=== PATIENT | male | born 1940 | race Caucasian/White ===

== ENCOUNTER 2019-12-22 18:19 | Emergency (ER) | payer OTHER ==
[~2019-12-22] VITALS: Ht 182.9 cm; Wt 77.1 kg
[~2019-12-22 18:19] MED LIST: ACETAMINOPHEN-1 EAC1 PO; ALBUTEROL; ALBUTEROL NEB INH; AMBIEN5 MG PO; AMLODIPINE BESY10 MG PO; AMLODIPINE BESYL5 MG PO; APAP500 PO; ATROVENT IH; BACLOFEN 10 MG10 MG PO; BACTRIM DS TAB1 EACH PO; BISACODYL SUPP10 MG RECTAL; CALCIPOTRIENE60 G1; CELEBREX 200 M200 M1 PO; CELEBREX 200 M200 MG PO; CELEXA 10 MG TA10 M1 PO; CELEXA 20 MG TA20 M1 PO; CLEOCIN HCL150 MG PO; CLONAZEPAM 0.50.5 M1 PO; CLONAZEPAM PO; COLACE 100 MG100 MG PO; CRESTOR20 MG PO; CYCLOBENZAPRINE10 MG PO; DIABETIC PILL PO; DICYCLOMINE HCL20 MG PO; DOVONEX TOP; DUONEB 2.5-0.5 M3 ML INH; ELIDEL100 GM TP; ENOXAPARIN40 MG/0.1 SUBQ; EPINEPHRINE0.1 MG/M1 IM; FEOSOL325 M1 PO; FERROUS SULFAT134 M1 PO; FLONASE 0.05%50 MCG NASAL; FLONASE 0.05%50 MCG NS; FLOVENT HFA 2220 MC1 INH; FOLIC ACID 1 MG1 MG PO; FORADIL 1212 MCG/KI1 INH; FUROSEMIDE 20 M20 M1 PO; FUROSEMIDE 20 M20 MG PO; FUROSEMIDE 40 M40 M1 PO; FUROSEMIDE 80 M80 MG PO; GLIPIZIDE ER2.5 MG PO; GLIPIZIDE ER5 MG PO; GLUCAGEN1 M2 IM; GLUCOPHAGE500 MG PO; GUIATUSS PO; HEMORRHOIDAL TOP; HUMULINR100 SQ; HYDROCODONE-AP1 EA10 PO; IBUPROFEN 800800 M1 PO; IPRATROPIUM; K-DUR 20 MEQ T20 MEQ PO; KEPPRA 100100 MG/M1 PO; KEPPRA250 MG PO; KLONOPIN0.5 MG PO; KLOR CON M; KLOR-CON 10 ER10 MEQ PO; LIDOCAINE VISC100 M1 SWISH&SPIT; LISINOPRIL40 MG PO; MAALOX PLUS X PO; METHOTREXATE 22.5 M1 PO; MIRALAX255 GM PO; MOM PO; MUCINEX600 MG PO; NEXIUM40 MG PO; NORCO 5-325 TA1 EACH PO; NOVOLOG100 UNIT/1 SUBQ; NYSTATIN 100,0015 G1 TOP; OMEPRAZOLE20 MG PO; PANTOPRAZOLE SO40 M1 PO; PHENERGAN PO; POTASSIUM CHLO10 ME1 PO; PREPARATION H O28 GM; PROAIR HFA8.5 GM INH; PROMETHAZINE12.5 M1 PO; PROTOPIC30 GM TP; PROVENTIL IH; PULMICORT FLEX90 MCG INH; QVAR HFA 880 MCG/UN1 INH; QVAR HFA 880 MCG/UN1 PO; SENNA CONCENTR8.6 MG PO; SENNA S TABLET1 EACH PO; SINGULAIR 10 MG10 M1 PO; SINGULAIR 10 MG10 MG PO; TAMSULOSIN HCL0.4 M1 PO; TOBRAMYCIN-DEXAM5 ML OPHTHALMIC; TOPAMAX 25 MG T25 M1 PO; TOPROL XL 100M100 MG PO; TRAMADOL 50 MG50 MG PO; TRAVATAN; TRICOR48 MG PO; TUMS PO; ULORIC40 MG PO; VENTOLIN HFA INH8 GM; VENTOLIN HFA INH8 GM IH; VENTOLIN HFA INH8 GM INH; XOLAIR; ZOCOR 20 MG TAB20 M1 PO; [UNRECOGNIZED DRUG - OTHER]; [UNRECOGNIZED DRUG - OTHER] PO
[2019-12-22 19:09] LABS: HEMATOCRIT 33.2 % (42.0-52.0); HEMOGLOBIN 10.3 gm/dL (14.0-18.0); MCH 26.4 pg (26.0-34.0); MCHC 31.1 g/dL (28.0-37.0); MCV 84.9 fL (80.0-100.0); PLATELET COUNT 274 thou/uL (150-400); RBC 3.92 mil/uL (4.50-6.00); RDW 15.6 % (10.5-14.5)
[2019-12-22 19:17] LABS: ANION GAP 7 mmol/L (7-16); BUN 14 mg/dL (7-18); CALCIUM 9.3 mg/dL (8.5-10.1); CHLORIDE 104 mmol/L (98-107); CO2 29 mmol/L (21-32); GLUCOSE 113 mg/dL (74-106); POTASSIUM 4.1 mmol/L (3.5-5.1); SODIUM 140 mmol/L (136-145)
[2019-12-22 19:27] LABS: ALBUMIN 2.7 g/dL (3.4-5.0); LIPASE 74 U/L (73-393); SGOT 12 U/L (15-37); SGPT 15 U/L (30-65); TOTAL BILIRUBIN 0.2 mg/dL (0.2-1.0); TOTAL PROTEIN 7.4 g/dL (6.4-8.2); TROPONIN-I <0.06 ng/mL (<0.06)
[2019-12-22 19:35] LABS: ABSOLUTE NEUTROPHILS 5.9 thou/uL (1.4-8.2)
[2019-12-22 21:25] VITALS: BP 162/72
--- NOTE | 2019-12-23 08:52 | EKG ---
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[id number] Requested By: Merlin Haley Order Number: [id number] MD: Ayo Calderon Measurements Intervals [place] Rate: 67 P: -1 [place]: 201 QRS: -59 QRSD: 141 T: -7 QT: 438 QTc: 463 Interpretive Statements Sinus arrhythmia 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
== END 2019-12-22 22:21 ==
LOC: ER 18:19
PROVIDERS: Emergency Medicine
DX: U07.1 COVID-19 (principal); J45.909 Unspecified asthma, uncomplicated; M10.9 Gout, unspecified; E78.5 Hyperlipidemia, unspecified; I13.0 Hypertensive heart and chronic kidney disease with heart failure and stage 1 through stage 4 chronic kidney disease, or unspecified chronic kidney disease; E11.22 Type 2 diabetes mellitus with diabetic chronic kidney disease; N18.3 Chronic kidney disease, stage 3 (moderate); I50.9 Heart failure, unspecified; Z86.2 Personal history of diseases of the blood and blood-forming organs and certain disorders involving the immune mechanism; Z90.89 Acquired absence of other organs; Z79.4 Long term (current) use of insulin; Z79.899 Other long term (current) drug therapy; Z91.012 Allergy to eggs